=== PATIENT | male | born 1985 ===

== ENCOUNTER 2021-02-25 06:12 | Emergency (ER) | payer OTHER, SELFPAY ==
[2021-02-25] MEDS: sodium chloride 0.9% 1,000 ML 999 ML IV ×2 (06:24→07:00)
[2021-02-25 06:25] VITALS: BP 62/47; PULSE 37; RESP 18; O2SAT 100; BMI 26.6
[2021-02-25] MEDS: succinylcholine 20 mg/mL SDV 10mL 200 MG IVP (06:32)
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
[2021-02-25 06:44] VITALS: BP_SYST 62; RESP 18; O2SAT 100
[2021-02-25] MEDS: vecuronium 10 mg SDV IVP (06:45)
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
[2021-02-25 06:52] VITALS: RESP 14
--- NOTE | 2021-02-25 06:55 | XR_ITS ---
WS: [id number] PORTABLE CHEST HISTORY: INTUBATION COMPARISON: 02/25/2021 Patient has been intubated since last exam. Endotracheal tube ends several centimeters above the bruce na in good position. Lungs are clear and well expanded. No pleural effusion or pneumothorax. Cardiac size: Normal. Mediastinum/Aorta: Normal mediastinum. No osseous abnormality seen. XR/XR chest 1V portable [id number] IMPRESSION: Satisfactory intubation since the prior study.
[2021-02-25 07:00] LABS: ABG PCO2 42.7 mmHg (35-45); ABG PH Result 7.32 (7.35-7.45); Alveolar-Arterial Oxygen Gradi 4.3 mmHg (5-10); Arterial Blood Gas Hematocrit 33.7 % (42-52); Base Excess ABG -4.2 mmol/L (-2.0-2.0); Blood Gas Operator Identificat HARKR; Blood Gas Sample Site Brachial, left; Blood Gas Sample Type Arterial; Blood Gas Tidal Volume 0.45; Carboxyhemoglobin 0.5 %THgb (0.4-20.1); HCO3 ABG 21.8 mmol/L (22-26); HGB O2 Sat 98.6 % (95-100); Ionized Calcium Level - ABG 1.1 mmol/L (1.1-1.4); Oxygen Device VENT; Oxygen Saturation ABG > 100.0; Potassium Level - ABG 4.8 mmol/L (3.5-5.0)
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
[2021-02-25 07:05] VITALS: BP 157/99; PULSE 84; RESP 14; O2SAT 100
--- NOTE | 2021-02-25 07:47 | ANES.PROC ---
Anesthesia Procedures Procedure/Date: 02/25/21 Intubation: Time Out Performed: No Consent: requested by attending/covering physician and emergency procedure Sedative (amount): etomidate (20) Paralytic (amount): succinylcholine (200 mg) Laryngoscope: Mary ET Tube Size: 8 ET Tube Uncuffed: Yes Tube Secured Location: teeth Tube Placement Confirmation: visualized tube passing through cords Patient Tolerated Procedure: well Intubation Complications: none Additional Comments: Performed by Simon Angeles CRNA, grade II view
--- NOTE | 2021-02-25 08:22 | PC.NURSE ---
Pt was given 2 Units emergent O neg blood started at 0624 with unit #s: [id number] and [id number]. Blood was administered via pressure bag and finished prior to pt discharge. Pt was sent to [facility] with unit #3 [id number] infusing. Pt also received 2 units FFPs, 1st unit emergently in ED as unit [id number] ABPos. 2nd unit [id number] was infusing upon pt transfer. Pt left with FFP, PRBC, and fentanyl and versed drips infusing. Blood band [id number] double checked upon infusion.
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
== END 2021-02-25 07:15 | disposition short-term general hospital (02) ==
PROVIDERS: Emergency Provider Family Medicine
DX: S02.92XB Unspecified fracture of facial bones, initial encounter for open fracture (principal); X95.9XXA Assault by unspecified firearm discharge, initial encounter; T79.4XXA Traumatic shock, initial encounter
CPT/HCPCS: 36556; 36600; 51702; 70450; 71045; 80051; 82330; 82805; 86900; 86920; 94002; 94799; 96365; 96368; 99291; C1751; J0330; J2250; J3010; J3490; J7030; P9016; P9017; P9040